=== PATIENT | male | born 1995 | race Asian ===

== ENCOUNTER 2017-05-29 21:13 | Emergency (ER) | payer OTHER ==
[~2017-05-29] VITALS: Ht 172.7 cm; Wt 58.2 kg
[2017-05-29 23:41] VITALS: BP 141/80
== END 2017-05-29 23:43 | disposition home or self-care (01) ==
LOC: EMS 21:15
DX: S63.615A Unspecified sprain of left ring finger, initial encounter (principal); X58.XXXA Exposure to other specified factors, initial encounter; Y93.67 Activity, basketball; Y92.89 Other specified places as the place of occurrence of the external cause; Y99.8 Other external cause status
CPT/HCPCS: 29280; 99284